=== PATIENT | female | born 1995 | race Caucasian/White ===

== ENCOUNTER 2016-11-28 15:03 | Emergency (ER) | payer MEDICAID ==
[~2016-11-28 15:03] MED LIST: EPIPEN JR0.15 MG/01 IM; IBUPROFEN600 MG PO; PERCOCET 5-3251 TAB PO; PHENERGAN25 M1 PO; PHENERGAN25 MG RC; PRENATAL COMPLE1 TAB PO; PRENAVITE1 TAB PO; VENTOLIN HFA18 GM POINH; ZOFRAN4 MG PO; [UNRECOGNIZED DRUG - OTHER]
[2016-11-28 15:46] LABS: BASOPHILS 0.5 % (0.0-2.0); EOSINOPHILS 2.3 % (0-7); HEMATOCRIT 38.7 % (36.0-48.0); HEMOGLOBIN 12.6 g/dL (12-16); IMMATURE GRANULOCYTES 0.3 % (0-5); LYMPHOCYTES 23.6 % (15-50); MCH 28.6 pg (26.0-34.0); MCHC 32.6 g/dL (31.0-37.0); MCV 87.8 fL (80.0-100.0); MEAN PLATELET VOLUME 11.9 fL (7.4-10.4); MONOCYTES 5.7 % (2-11); NEUTROPHILS 67.6 % (40-80); PLATELET COUNT 199 10x3/uL (130-400); RBC 4.41 10x6/uL (4.00-5.40); RDW 13.6 % (11.5-14.5); WBC 7.9 10x3/uL (4.8-10.8)
[2016-11-28 16:14] LABS: HCG SERUM NEGATIVE (NEGATIVE)
== END 2016-11-28 18:20 | disposition home or self-care (01) ==
LOC: D.ER 15:03
PROVIDERS: Emergency Medicine
DX: N93.8 Other specified abnormal uterine and vaginal bleeding (principal); J45.909 Unspecified asthma, uncomplicated

== ENCOUNTER 2017-05-01 13:07 | Emergency (ER) | payer MEDICAID ==
[2017-05-01 14:12] LABS: BASOPHILS 0.3 % (0-2); EOSINOPHILS 1.4 % (0-7); HEMATOCRIT 36.3 % (36.0-48.0); HEMOGLOBIN 12.3 g/dL (12-16); IMMATURE GRANULOCYTES 0.4 % (0-5); LYMPHOCYTES 17.7 % (15-50); MCH 30.5 pg (26.0-34.0); MCHC 33.9 g/dL (31.0-37.0); MCV 90.1 fL (80.0-100.0); MEAN PLATELET VOLUME 11.5 fL (7.4-10.4); MONOCYTES 5.3 % (2-11); NEUTROPHILS 74.9 % (40-80); PLATELET COUNT 164 10x3/uL (130-400); RBC 4.03 10x6/uL (4.00-5.40); RDW 13.9 % (11.5-14.5)
[2017-05-01 14:24] LABS: ALBUMIN 2.8 g/dL (3.4-5.0); ALKALINE PHOSPHATASE 67 U/L (46-116); ALT (SGPT) 46 U/L (10-68); BILIRUBIN - TOTAL 0.41 mg/dL (0.2-1.3); CALC OSMOLALITY 271 mosm/kg (275-300); CALCIUM 8.7 mg/dL (8.5-10.1); CARBON DIOXIDE 21.3 mmol/L (21.0-32.0); CHLORIDE - SERUM 105 mmol/L (98-107); CREATININE - SERUM 0.7 mg/dL (0.6-1.3); GLUCOSE 88 mg/dL (74-106); POTASSIUM - SERUM 4.1 mmol/L (3.5-5.1); PROTEIN - SERUM 6.4 g/dL (6.4-8.2); SODIUM 137 mmol/L (136-145); UREA NITROGEN 10 mg/dL (7-18); eGFR NON AFRICAN AMERICAN > 90 mL/min (90-120)
[2017-05-01 14:47] LABS: HCG - QUANTITATIVE (MATERNAL) 52308 mIU/mL
[2017-05-01 14:52] LABS: APPEARANCE HAZY (CLEAR); BILIRUBIN NEGATIVE (NEGATIVE); COLOR DK YELLOW (YELLOW); GLUCOSE NEGATIVE (NEGATIVE); KETONE NEGATIVE (NEGATIVE); LEUKOCYTE ESTERASE 2+ (NEGATIVE); NITRITE NEGATIVE (NEGATIVE); PROTEIN NEGATIVE (NEGATIVE); UROBILINOGEN NORMAL (NORMAL)
[2017-05-01 14:54] LABS: BACTERIA MODERATE /hpf (NONE SEEN)
== END 2017-05-01 17:00 | disposition home or self-care (01) ==
LOC: D.ER 13:07
PROVIDERS: Family Medicine
DX: O20.9 Hemorrhage in early pregnancy, unspecified (principal); Z3A.15 15 weeks gestation of pregnancy; O23.42 Unspecified infection of urinary tract in pregnancy, second trimester; R10.9 Unspecified abdominal pain; R11.0 Nausea; R51 Headache

== ENCOUNTER → 2017-06-17 11:40 | Outpatient (CLI) | payer MEDICAID | END | disposition home or self-care (01) | LOC: D.LDO 11:40 | DX: O26.892 Other specified pregnancy related conditions, second trimester (principal); Z3A.21 21 weeks gestation of pregnancy; R10.2 Pelvic and perineal pain; O36.8190 Decreased fetal movements, unspecified trimester, not applicable or unspecified; N89.8 Other specified noninflammatory disorders of vagina ==

== ENCOUNTER → 2017-08-11 11:05 | Outpatient (CLI) | payer MEDICAID ==
[~2017-08-11 11:05] MED LIST changes: +IBUPROFEN800 MG PO
[2017-08-11 13:39] LABS: APPEARANCE HAZY (CLEAR); BILIRUBIN NEGATIVE (NEGATIVE); COLOR DK YELLOW (YELLOW); GLUCOSE NEGATIVE (NEGATIVE); KETONE NEGATIVE (NEGATIVE); NITRITE NEGATIVE (NEGATIVE); PROTEIN NEGATIVE (NEGATIVE); SPECIFIC GRAVITY 1.015 (1.005-1.020); UROBILINOGEN NORMAL (NORMAL)
[2017-08-11 13:40] LABS: BACTERIA MANY /hpf (NONE SEEN); MUCUS <1+ /lpf (NONE SEEN); RED CELLS - URINE RARE /hpf (0-5); WHITE CELLS - URINE 0-5 /hpf (0-5)
== END | disposition home or self-care (01) ==
LOC: D.LDO 11:05
PROVIDERS: Obstetrics & Gynecology
DX: O36.8130 Decreased fetal movements, third trimester, not applicable or unspecified (principal); Z3A.29 29 weeks gestation of pregnancy

== ENCOUNTER 2017-08-12 15:30 | Outpatient (CLI) | payer MEDICAID ==
[~2017-08-12 15:30] MED LIST changes: -IBUPROFEN800 MG PO
[2017-08-12 16:02] LABS: COLOR DK YELLOW (YELLOW)
[2017-08-12 16:03] LABS: APPEARANCE CLEAR (CLEAR); BILIRUBIN NEGATIVE (NEGATIVE); GLUCOSE NEGATIVE (NEGATIVE); KETONE LARGE mg/dL (NEGATIVE); NITRITE NEGATIVE (NEGATIVE); PROTEIN NEGATIVE (NEGATIVE); UROBILINOGEN NORMAL (NORMAL)
[2017-08-12 16:07] LABS: UDS - AMPHET NEGATIVE QUAL (NEGATIVE); UDS - BARB NEGATIVE QUAL (NEGATIVE); UDS - BENZO NEGATIVE QUAL (NEGATIVE); UDS - COCAINE NEGATIVE QUAL (NEGATIVE); UDS - OPIATE NEGATIVE QUAL (NEGATIVE); UDS - PCP NEGATIVE QUAL (NEGATIVE); UDS - THC NEGATIVE QUAL (NEGATIVE); WHITE CELLS - URINE RARE /hpf (0-5)
[2017-08-12 16:08] LABS: BACTERIA FEW /hpf (NONE SEEN); EPITHELIAL CELLS OCC /hpf (0-5); RED CELLS - URINE 0-5 /hpf (0-5)
[2017-08-12 16:33] LABS: BASOPHILS 0.1 % (0-2); EOSINOPHILS 0.5 % (0-7); HEMATOCRIT 33.6 % (36.0-48.0); HEMOGLOBIN 11.1 g/dL (12-16); IMMATURE GRANULOCYTES 1.7 % (0-5); LYMPHOCYTES 14.2 % (15-50); MCH 30.7 pg (26.0-34.0); MCV 92.8 fL (80.0-100.0); MEAN PLATELET VOLUME 11.5 fL (7.4-10.4); NEUTROPHILS 79.5 % (40-80); RBC 3.62 10x6/uL (4.00-5.40); WBC 8.1 10x3/uL (4.8-10.8)
[2017-08-12 16:34] LABS: PLATELET COUNT 125 10x3/uL (130-400)
[2017-08-12 16:52] LABS: ALBUMIN 2.4 g/dL (3.4-5.0); ALKALINE PHOSPHATASE 72 U/L (46-116); ALT (SGPT) 32 U/L (10-68); AMYLASE - SERUM 88 U/L (25-115); BILIRUBIN - TOTAL 0.32 mg/dL (0.2-1.3); CALC OSMOLALITY 276 mosm/kg (275-300); CALCIUM 8.5 mg/dL (8.5-10.1); CARBON DIOXIDE 22.4 mmol/L (21.0-32.0); CHLORIDE - SERUM 105 mmol/L (98-107); CREATININE - SERUM 0.6 mg/dL (0.6-1.3); GLUCOSE 115 mg/dL (74-106); LIPASE 227 U/L (73-393); POTASSIUM - SERUM 3.4 mmol/L (3.5-5.1); PROTEIN - SERUM 6.3 g/dL (6.4-8.2); SODIUM 139 mmol/L (136-145); UREA NITROGEN 8 mg/dL (7-18); eGFR NON AFRICAN AMERICAN > 90 mL/min (90-120)
[2017-08-12] MEDS ORDERED: PRENATAL COMPLE1 TAB PO (18:27)
[2017-08-12 20:20] LABS: APPEARANCE CLEAR (CLEAR); BILIRUBIN NEGATIVE (NEGATIVE); COLOR YELLOW (YELLOW); GLUCOSE NEGATIVE (NEGATIVE); KETONE NEGATIVE (NEGATIVE); NITRITE NEGATIVE (NEGATIVE); PROTEIN NEGATIVE (NEGATIVE); SPECIFIC GRAVITY 1.015 (1.005-1.020); UROBILINOGEN NORMAL (NORMAL)
[2017-08-12 20:23] LABS: WHITE CELLS - URINE 0-5 /hpf (0-5)
[2017-08-12 20:24] LABS: BACTERIA FEW /hpf (NONE SEEN)
[2017-08-12 20:25] LABS: RED CELLS - URINE OCC /hpf (0-5)
== END 2017-08-12 20:45 | disposition home or self-care (01) ==
LOC: D.LDO 15:30
PROVIDERS: Obstetrics & Gynecology
DX: O26.893 Other specified pregnancy related conditions, third trimester (principal); Z3A.29 29 weeks gestation of pregnancy; R10.30 Lower abdominal pain, unspecified; R19.7 Diarrhea, unspecified

== ENCOUNTER → 2017-08-14 12:45 | Outpatient (CLI) | payer MEDICAID ==
[~2017-08-14 12:45] MED LIST changes: +IBUPROFEN800 MG PO
[2017-08-14 13:51] LABS: APPEARANCE CLOUDY (CLEAR); BACTERIA MODERATE /hpf (NONE SEEN); BILIRUBIN NEGATIVE (NEGATIVE); COLOR YELLOW (YELLOW); GLUCOSE NEGATIVE (NEGATIVE); KETONE NEGATIVE (NEGATIVE); MUCUS <1+ /lpf (NONE SEEN); NITRITE NEGATIVE (NEGATIVE); PROTEIN NEGATIVE (NEGATIVE); RED CELLS - URINE RARE /hpf (0-5); WHITE CELLS - URINE OCC /hpf (0-5)
[2017-08-14 13:52] LABS: CALCIUM OXALATE CRYSTALS >50 /hpf (NONE SEEN)
== END | disposition home or self-care (01) ==
LOC: D.LDO 12:45
PROVIDERS: Obstetrics & Gynecology
DX: O26.893 Other specified pregnancy related conditions, third trimester (principal); Z3A.30 30 weeks gestation of pregnancy; M54.9 Dorsalgia, unspecified; R10.9 Unspecified abdominal pain; R11.0 Nausea

== ENCOUNTER → 2017-09-11 10:50 | Outpatient (CLI) | payer MEDICAID ==
[2017-09-11 12:18] LABS: APPEARANCE HAZY (CLEAR); BILIRUBIN NEGATIVE (NEGATIVE); COLOR DK YELLOW (YELLOW); GLUCOSE NEGATIVE (NEGATIVE); KETONE NEGATIVE (NEGATIVE); NITRITE NEGATIVE (NEGATIVE); PROTEIN NEGATIVE (NEGATIVE); UROBILINOGEN NORMAL (NORMAL)
[2017-09-11 12:22] LABS: BACTERIA MODERATE /hpf (NONE SEEN); RED CELLS - URINE OCC /hpf (0-5); WHITE CELLS - URINE 0-5 /hpf (0-5); YEAST OCC /hpf (NONE SEEN)
[2017-09-11 12:23] LABS: CALCIUM OXALATE CRYSTALS 25-50 /hpf (NONE SEEN); MUCUS >1+ /lpf (NONE SEEN)
== END | disposition home or self-care (01) ==
LOC: D.LDO 10:50
PROVIDERS: Obstetrics & Gynecology
DX: O26.893 Other specified pregnancy related conditions, third trimester (principal); Z3A.34 34 weeks gestation of pregnancy; M54.9 Dorsalgia, unspecified; R30.0 Dysuria

== ENCOUNTER → 2017-09-26 16:02 | Outpatient (CLI) | payer MEDICAID ==
[2017-09-26 16:52] LABS: APPEARANCE HAZY (CLEAR); BILIRUBIN NEGATIVE (NEGATIVE); COLOR DK YELLOW (YELLOW); GLUCOSE NEGATIVE (NEGATIVE); KETONE NEGATIVE (NEGATIVE); NITRITE NEGATIVE (NEGATIVE); PROTEIN NEGATIVE (NEGATIVE); SPECIFIC GRAVITY 1.025 (1.005-1.020); UROBILINOGEN NORMAL (NORMAL)
== END | disposition home or self-care (01) ==
LOC: D.LDO 16:02
PROVIDERS: Obstetrics & Gynecology
DX: Z34.83 Encounter for supervision of other normal pregnancy, third trimester (principal); Z3A.36 36 weeks gestation of pregnancy

== ENCOUNTER → 2017-09-28 15:47 | Outpatient (CLI) | payer MEDICAID | END | disposition home or self-care (01) | LOC: D.LDO 15:47 | DX: O26.893 Other specified pregnancy related conditions, third trimester (principal); Z3A.36 36 weeks gestation of pregnancy ==

== ENCOUNTER 2017-10-07 19:19 | Outpatient (CLI) | payer MEDICAID ==
[~2017-10-07 19:19] MED LIST changes: -IBUPROFEN800 MG PO
[2017-10-07 20:07] LABS: BASOPHILS 0.1 % (0-2); EOSINOPHILS 0.9 % (0-7); HEMATOCRIT 32.1 % (36.0-48.0); HEMOGLOBIN 10.4 g/dL (12-16); LYMPHOCYTES 19.6 % (15-50); MCHC 32.4 g/dL (31.0-37.0); MCV 86.3 fL (80.0-100.0); MEAN PLATELET VOLUME 12.5 fL (7.4-10.4); MONOCYTES 4.8 % (2-11); NEUTROPHILS 72.6 % (40-80); PLATELET COUNT 132 10x3/uL (130-400); RBC 3.72 10x6/uL (4.00-5.40); RDW 14.1 % (11.5-14.5); WBC 7.5 10x3/uL (4.8-10.8)
[2017-10-07 20:27] LABS: APPEARANCE HAZY (CLEAR); BACTERIA MODERATE /hpf (NONE SEEN); BILIRUBIN NEGATIVE (NEGATIVE); COLOR YELLOW (YELLOW); GLUCOSE NEGATIVE (NEGATIVE); KETONE NEGATIVE (NEGATIVE); NITRITE NEGATIVE (NEGATIVE); PROTEIN NEGATIVE (NEGATIVE); RED CELLS - URINE 0-5 /hpf (0-5); SPECIFIC GRAVITY 1.015 (1.005-1.020); UROBILINOGEN NORMAL (NORMAL)
[2017-10-07 20:28] LABS: MUCUS >1+ /lpf (NONE SEEN); SPERMATOZOA RARE /hpf (NONE SEEN)
[2017-10-07 20:29] LABS: CALC OSMOLALITY 273 mosm/kg (275-300); CALCIUM 8.9 mg/dL (8.5-10.1); CARBON DIOXIDE 13.6 mmol/L (21.0-32.0); CHLORIDE - SERUM 103 mmol/L (98-107); CREATININE - SERUM 0.7 mg/dL (0.6-1.3); GLUCOSE 87 mg/dL (74-106); SODIUM 138 mmol/L (136-145); UREA NITROGEN 11 mg/dL (7-18); eGFR NON AFRICAN AMERICAN > 90 mL/min (90-120)
== END 2017-10-07 21:00 | disposition home or self-care (01) ==
LOC: D.LDO 19:19
PROVIDERS: Obstetrics & Gynecology
DX: O26.893 Other specified pregnancy related conditions, third trimester (principal); Z3A.37 37 weeks gestation of pregnancy; O36.8190 Decreased fetal movements, unspecified trimester, not applicable or unspecified

== ENCOUNTER 2017-10-15 20:42 | Inpatient (IN) | payer MEDICAID ==
[~2017-10-15] VITALS: Ht 162.6 cm; Wt 99.5 kg
--- NOTE | ~2017-10-15 | OP ---
PATIENT NAME: GERARDO JIMENEZ MEDICAL RECORD: [id number] :96 LOCATION:[facility]57 ADMISSION DATE:10/15/17 SURGEON: EVERT ALCALA MD DATE OF OPERATION: 10/16/2017 PREDELIVERY DIAGNOSIS: at term. POSTDELIVERY DIAGNOSIS: Mother delivered at term. PROCEDURE: Induction of labor with vaginal delivery. ATTENDING: Evert Alcala MD ANESTHESIOLOGIST: Cecilio Haynes MD ANESTHETICS: Continuous lumbar epidural loading dose only. FINDINGS: Viable female , vertex presentation, Apgars are 9 and 9, weight is 3465 grams. First-degree laceration without repair. Placenta spontaneous and intact. EBL is 350 cc. DISPOSITION: Mother and infant recovered in the room with subsequent mother to operating room for tubal ligation. TRANSINT:[id number] Voice Confirmation ID: [id number] DOCUMENT ID: [id number] EVERT ALCALA MD at 1647 CC: [id number] DICTATION DATE: 10/16/17 1315 GIN FEEDER: 10/16/17 1336 DIS IN 10/17/17 [facility] [address] [place] [address]
--- NOTE | ~2017-10-15 | OP ---
PATIENT NAME: GERARDO JIMENEZ MEDICAL RECORD: [id number] :96 LOCATION:[facility]1257 ADMISSION DATE:10/15/17 SURGEON: EVERT ALCALA MD DATE OF OPERATION: 10/16/2017 PREOPERATIVE DIAGNOSES: 1. Unwanted fertility. 2. Status post vaginal delivery. POSTOPERATIVE DIAGNOSES: 1. Unwanted fertility. 2. Status post vaginal delivery. PROCEDURE: tubal ligation using Sanborn technique. SURGEON: Evert Alcala MD ORTHOTICS TECHNICIAN: Hair Starr. ANESTHESIOLOGIST: Dr. Haynes. ANESTHETIC: Continuous lumbar epidural. FINDINGS: Unremarkable uterine fundus and tubes bilaterally. SPECIMEN: Removed tubes. SPECIMEN DISPOSITION: Both tubes in separate containers to pathology. ESTIMATED BLOOD LOSS: Minimal. FLUIDS: 900 cc of lactated Ringer's. URINE OUTPUT: Quantity sufficient void prior to the procedure. COMPLICATIONS: None. DRAINS: None. INDICATIONS: The patient is 22-year-old multiparous female with unwanted fertility. The patient has been given alternatives to tubal ligation and risk, benefits and limitations thereof. The patient desires permanent sterilization and understands risk of ectopic gestation. DESCRIPTION OF PROCEDURE: After informed consent was assured, the patient was taken to the operating room, anesthetic was obtained without difficulty. The patient was now prepped and draped in the usual sterile fashion. The patient has an incision made at the infraumbilical site. This was injected with Marcaine prior to the incision being made. Incision was taken down to the underlying layer of the fascia, which was opened in the midline and extended laterally. The peritoneum was entered sharply and using retractors the fundus was identified. The tube was identified at the left cornual region and followed to its fimbriated end. A knuckle was now developed and it was doubly ligated with chromic stitch. Intervening segment of tube was excised and the ostia cauterized. The tubal stump was returned to the abdomen with adequate OPERATIVE REPORT [id number] GERARDO JIMENEZ hemostasis. Attention was now directed to the right side. The right tube was located and followed to its fimbriated end in similar fashion. Knuckle was now developed and secured the knuckle of stitch. The intervening segment of tube was now excised with Metzenbaum scissors and the ostia cauterized. The tubal stump was returned to the abdomen. Fascia was closed in a running fashion. Subcutaneous tissues inspected. Bleeding vessels cauterized and the skin approximated with subcuticular stitch. Sterile dressing was applied. Again, the sponge, lap and needle counts correct times 2. TRANSINT:[id number] Voice Confirmation ID: [id number] DOCUMENT ID: [id number] EVERT ALCALA MD at 1647 CC: [id number] DICTATION DATE: 10/16/17 1318 VETERINARY PATHOLOGIST: 10/16/17 1354 DIS IN 10/17/17 [id number] [place] [address]
[2017-10-15 22:03] VITALS: BP 111/65; Ht 162.6 cm; Wt 99.5 kg
[2017-10-15 23:37] LABS: HEMATOCRIT 31.3 % (36.0-48.0); MCH 27.3 pg (26.0-34.0); MCHC 31.9 g/dL (31.0-37.0); MCV 85.5 fL (80.0-100.0); MEAN PLATELET VOLUME 12.3 fL (7.4-10.4); RBC 3.66 10x6/uL (4.00-5.40); RDW 14.4 % (11.5-14.5); WBC 8.2 10x3/uL (4.8-10.8)
[2017-10-15 23:43] LABS: APPEARANCE CLEAR (CLEAR); BACTERIA FEW /hpf (NONE SEEN); BILIRUBIN NEGATIVE (NEGATIVE); COLOR DK YELLOW (YELLOW); EPITHELIAL CELLS NSEEN /hpf (0-5); GLUCOSE NEGATIVE (NEGATIVE); KETONE NEGATIVE (NEGATIVE); NITRITE NEGATIVE (NEGATIVE); PROTEIN NEGATIVE (NEGATIVE); RED CELLS - URINE NONE SEEN /hpf (0-5); SPECIFIC GRAVITY 1.015 (1.005-1.020); UROBILINOGEN NORMAL (NORMAL)
[2017-10-16 11:39] VITALS: BP 94/62
[2017-10-16 12:21] VITALS: BP 96/65
[2017-10-16 20:08] VITALS: BP 103/56
[2017-10-16 23:00] VITALS: BP 102/67
[2017-10-17 07:27] LABS: RAPID PLASMA REAGIN Non Reactive (Non Reactive)
[2017-10-17 08:10] VITALS: BP 114/69
[2017-10-17] MEDS ORDERED: PERCOCET 5-3251 TAB PO (10:39)
[2017-10-17] MEDS ORDERED: IBUPROFEN800 MG PO (10:41)
== END 2017-10-17 12:30 | disposition home or self-care (01) | DRG 767 ==
LOC: D.LD 20:42
PROVIDERS: Obstetrics & Gynecology
PROC: 0UB70ZZ Excision of Bilateral Fallopian Tubes, Open Approach (ICD-10-PCS; 2017-10-16)
PROC: 10E0XZZ Delivery of Products of Conception, External Approach (ICD-10-PCS; principal; 2017-10-16 09:30)
DX: O70.0 First degree perineal laceration during delivery (principal); Z37.0 Single live birth; Z3A.39 39 weeks gestation of pregnancy; Z87.891 Personal history of nicotine dependence; Z30.2 Encounter for sterilization; Z30.09 Encounter for other general counseling and advice on contraception

== ENCOUNTER 2018-04-03 01:01 | Emergency (ER) | payer MEDICAID ==
[~2018-04-03] VITALS: Ht 162.6 cm; Wt 92.7 kg
[~2018-04-03 01:01] MED LIST changes: +IBUPROFEN800 MG PO
[2018-04-03 01:06] VITALS: Ht 162.6 cm; Wt 92.7 kg
[2018-04-03] MEDS ORDERED: EPIPEN0.3 MG/0.3 IM (01:09)
[2018-04-03 01:54] LABS: HCG SERUM NEGATIVE (NEGATIVE)
[2018-04-03] MEDS ORDERED: MEDROL DOSE PACK4 MG PO (02:06)
[2018-04-03 02:34] VITALS: BP 108/68
[2018-04-04] MEDS ORDERED: FLAGYL500 MG PO (02:23)
[2018-04-04] MEDS ORDERED: ZOFRAN ODT4 MG/UDTAB PO (02:23)
[2018-04-04] MEDS ORDERED: CIPRO500 MG PO (02:23)
== END 2018-04-03 02:33 | disposition home or self-care (01) ==
LOC: D.ER 01:01
PROVIDERS: Emergency Medicine
DX: T50.995A Adverse effect of other drugs, medicaments and biological substances, initial encounter (principal); Y92.019 Unspecified place in single-family (private) house as the place of occurrence of the external cause

== ENCOUNTER 2018-04-04 00:03 | Emergency (ER) | payer MEDICAID ==
[~2018-04-04] VITALS: Ht 162.6 cm; Wt 92.7 kg
[~2018-04-04 00:03] MED LIST changes: +EPIPEN0.3 MG/0.3 IM; +MEDROL DOSE PACK4 MG PO
[2018-04-04 00:11] VITALS: Ht 162.6 cm; Wt 92.7 kg
[2018-04-04 00:46] LABS: APPEARANCE CLOUDY (CLEAR); BILIRUBIN NEGATIVE (NEGATIVE); COLOR YELLOW (YELLOW); GLUCOSE NEGATIVE (NEGATIVE); KETONE NEGATIVE (NEGATIVE); NITRITE NEGATIVE (NEGATIVE); PROTEIN NEGATIVE (NEGATIVE); SPECIFIC GRAVITY 1.025 (1.005-1.020); UROBILINOGEN NORMAL (NORMAL)
[2018-04-04 00:49] LABS: BACTERIA MANY /hpf (NONE SEEN); CALCIUM OXALATE CRYSTALS 0-5 /hpf (NONE SEEN); RED CELLS - URINE 0-5 /hpf (0-5); WHITE CELLS - URINE 0-5 /hpf (0-5)
[2018-04-04 01:01] LABS: BASOPHILS 0.2 % (0-2); EOSINOPHILS 0.1 % (0-7); HEMATOCRIT 39.5 % (36.0-48.0); IMMATURE GRANULOCYTES 0.6 % (0-5); LYMPHOCYTES 15.3 % (15-50); MCH 27.6 pg (26.0-34.0); MCHC 32.9 g/dL (31.0-37.0); MCV 83.9 fL (80.0-100.0); MEAN PLATELET VOLUME 11.2 fL (7.4-10.4); MONOCYTES 5.9 % (2-11); NEUTROPHILS 77.9 % (40-80); RBC 4.71 10x6/uL (4.00-5.40); RDW 14.6 % (11.5-14.5); WBC 12.1 10x3/uL (4.8-10.8)
[2018-04-04 01:02] LABS: PLATELET COUNT 189 10x3/uL (130-400)
[2018-04-04 01:14] LABS: ALBUMIN 3.5 g/dL (3.4-5.0); ALKALINE PHOSPHATASE 71 U/L (46-116); ALT (SGPT) 85 U/L (10-68); AMYLASE - SERUM 85 U/L (25-115); BILIRUBIN - TOTAL 0.22 mg/dL (0.2-1.3); CALC OSMOLALITY 283 mosm/kg (275-300); CALCIUM 8.8 mg/dL (8.5-10.1); CARBON DIOXIDE 27.5 mmol/L (21.0-32.0); CHLORIDE - SERUM 106 mmol/L (98-107); CREATININE - SERUM 0.9 mg/dL (0.6-1.3); GLUCOSE 106 mg/dL (74-106); LIPASE 238 U/L (73-393); POTASSIUM - SERUM 3.8 mmol/L (3.5-5.1); PROTEIN - SERUM 7.6 g/dL (6.4-8.2); SODIUM 142 mmol/L (136-145); UREA NITROGEN 16 mg/dL (7-18); eGFR NON AFRICAN AMERICAN 84 mL/min (90-120)
[2018-04-04] MEDS ORDERED: FLAGYL500 MG PO (02:23)
[2018-04-04] MEDS ORDERED: CIPRO500 MG PO (02:23)
[2018-04-04] MEDS ORDERED: ZOFRAN ODT4 MG/UDTAB PO (02:23)
[2018-04-04 02:55] VITALS: BP 128/74
== END 2018-04-04 02:55 | disposition home or self-care (01) ==
LOC: D.ER 00:03
PROVIDERS: Emergency Medicine
DX: K52.9 Noninfective gastroenteritis and colitis, unspecified (principal); N39.0 Urinary tract infection, site not specified

== ENCOUNTER 2018-05-04 02:20 | Emergency (ER) | payer MEDICAID ==
[~2018-05-04] VITALS: Ht 162.6 cm; Wt 92.7 kg
[~2018-05-04 02:20] MED LIST changes: +CIPRO500 MG PO; +FLAGYL500 MG PO; +ZOFRAN ODT4 MG/UDTAB PO
[2018-05-04 02:28] VITALS: Ht 162.6 cm; Wt 92.7 kg
[2018-05-04] MEDS ORDERED: BIRTH CONTROL PILL (02:30)
[2018-05-04 02:55] LABS: APPEARANCE HAZY (CLEAR); BILIRUBIN NEGATIVE (NEGATIVE); COLOR YELLOW (YELLOW); GLUCOSE NEGATIVE (NEGATIVE); KETONE NEGATIVE (NEGATIVE); NITRITE NEGATIVE (NEGATIVE); PROTEIN NEGATIVE (NEGATIVE); UROBILINOGEN NORMAL (NORMAL)
[2018-05-04 02:57] LABS: BACTERIA FEW /hpf (NONE SEEN); EPITHELIAL CELLS 0-5 /hpf (0-5); MUCUS <1+ /lpf (NONE SEEN); RED CELLS - URINE 0-5 /hpf (0-5); WHITE CELLS - URINE 0-5 /hpf (0-5)
[2018-05-04 03:20] LABS: BASOPHILS 0.3 % (0-2); EOSINOPHILS 1.8 % (0-7); HEMOGLOBIN 12.4 g/dL (12-16); IMMATURE GRANULOCYTES 0.1 % (0-5); LYMPHOCYTES 25.1 % (15-50); MCH 27.7 pg (26.0-34.0); MCHC 32.6 g/dL (31.0-37.0); MCV 84.8 fL (80.0-100.0); MEAN PLATELET VOLUME 11.1 fL (7.4-10.4); MONOCYTES 5.4 % (2-11); NEUTROPHILS 67.3 % (40-80); RBC 4.48 10x6/uL (4.00-5.40); RDW 14.9 % (11.5-14.5); WBC 7.2 10x3/uL (4.8-10.8)
[2018-05-04 03:22] LABS: PLATELET COUNT 151 10x3/uL (130-400)
[2018-05-04 03:32] LABS: ALBUMIN 2.9 g/dL (3.4-5.0); ANION GAP 11.7 mmol/L (8-16); BILIRUBIN - TOTAL 0.23 mg/dL (0.2-1.3); CALCIUM 8.5 mg/dL (8.5-10.1); CARBON DIOXIDE 27.3 mmol/L (21.0-32.0)
[2018-05-04 03:44] LABS: HCG SERUM NEGATIVE (NEGATIVE)
[2018-05-04 04:18] VITALS: BP 127/76
== END 2018-05-04 04:18 | disposition home or self-care (01) ==
LOC: D.ER 02:20
PROVIDERS: Emergency Medicine
DX: K59.00 Constipation, unspecified (principal); M54.6 Pain in thoracic spine

== ENCOUNTER 2018-08-06 05:35 | Day surgery (SDC) | payer MEDICAID ==
[2018-08-03 12:03] LABS: BASOPHILS 0.5 % (0-2); HEMATOCRIT 37.2 % (36.0-48.0); HEMOGLOBIN 12.1 g/dL (12-16); IMMATURE GRANULOCYTES 0.3 % (0-5); LYMPHOCYTES 28.3 % (15-50); MCH 28.3 pg (26.0-34.0); MCHC 32.5 g/dL (31.0-37.0); MCV 86.9 fL (80.0-100.0); MEAN PLATELET VOLUME 10.4 fL (7.4-10.4); MONOCYTES 4.7 % (2-11); NEUTROPHILS 63.2 % (40-80); RBC 4.28 10x6/uL (4.00-5.40); RDW 14.1 % (11.5-14.5); WBC 6.7 10x3/uL (4.8-10.8)
[2018-08-03 12:05] LABS: PLATELET COUNT 185 10x3/uL (130-400)
[~2018-08-06] VITALS: Ht 162.6 cm; Wt 95.7 kg
--- NOTE | ~2018-08-06 | OP ---
PATIENT NAME: GERARDO JIMENEZ MEDICAL RECORD: [id number] :96 LOCATION:D.[facility] ADMISSION DATE: SURGEON: YANIV ALCALA MD DATE OF OPERATION: 08/06/2018 PREOPERATIVE DIAGNOSES: 1. Dysmenorrhea. 2. Pelvic pain. 3. Dyspareunia. POSTOPERATIVE DIAGNOSES: 1. Dysmenorrhea. 2. Pelvic pain. 3. Dyspareunia. 4. Suspect adenomyosis. PROCEDURE: 1. Diagnostic laparoscopy. 2. Hysteroscopy with dilation and curettage. SURGEON: Yaniv Alcala MD ANESTHESIOLOGIST: Dr. Haynes. ANESTHETIC: General. FINDINGS: Uterus is enlarged and boggy. Both tubes were interrupted bilaterally. The ovaries are unremarkable and there is no evidence of active endometriosis in the pelvis. What was visualized of the abdominal anatomy was also unremarkable. At the time of hysteroscopy, a lush endometrium without evidence of polypoid mass or fibroid. SPECIMEN REMOVED: Endometrial curettings. SPECIMEN DISPOSITION: Pathology. ESTIMATED BLOOD LOSS: Minimal FLUIDS: 800 cc lactated Ringer's. URINE OUTPUT: Quantity sufficient cath prior to the procedure. COMPLICATIONS: None. DRAINS: None. INDICATIONS: The patient is a 23-year-old female status post tubal ligation with dysmenorrhea and pelvic pain. The patient has been on oral contraception for 4-6 months without change in her symptoms. The patient was consented for diagnostic laparoscopy, D&C with hysteroscopy and any indicated procedure. DESCRIPTION OF PROCEDURE: After informed consent was assured, the patient was taken to the operating room where anesthetic was obtained. The patient was placed in Param stirrups and then prepped and draped in the usual sterile fashion. An incision was made at the umbilicus to accommodate a 5-mm trocar, OPERATIVE REPORT [id number] GERARDO JIMENEZ which was inserted without difficulty. Pneumoperitoneum was now developed and accessory port was placed 2 fingerbreadths above the symphysis in the midline. Through this port, a blunt probe was placed and with the patient in the Trendelenburg position, the bowel was swept free of the pelvis. Both ovaries, tubes and the uterus was inspected with the above findings. Upon conclusion of the diagnostic laparoscopy, the pneumoperitoneum was released and the accessory and primary trocars were removed. The skin was reapproximated with a subcuticular stitch. The legs were positioned for the hysteroscopy. A speculum was introduced to the vagina and the cervix grasped with a single tooth tenaculum. The cervix was now dilated to accommodate a diagnostic hysteroscope. This was passed gently through the endocervical canal and into the uterine cavity. With the distention media, the cavity was visualized with no evidence of polypoid masses or fibroids. Lush endometrium was encountered. The cervix was now continued to be dilated until a #2 curette is used to obtain good cry throughout. Moderate tissue was removed and passed to the attendant. Upon the removal of the single-tooth tenaculum, laceration has occurred and this was closed with a chromic stitch. Sponge, lap, and needle counts correct times 2. The patient was awakened and went to the recovery area in stable condition. TRANSINT:[id number] Voice Confirmation ID: [id number] DOCUMENT ID: [id number] YANIV ALCALA MD at 1705 CC: [id number] DICTATION DATE: 08/06/18826 ABRASIVE COATING MACHINE OPERATOR: 08/06/18 0838 [facility] 08/06/18 [id number] [place] [address]
[~2018-08-06 05:35] MED LIST changes: +BIRTH CONTROL PILL
[2018-08-06] MEDS ORDERED: ALBUTEROL SULF8.5 GM (06:16)
[2018-08-06 06:23] VITALS: BP 106/67; Ht 162.6 cm; Wt 95.7 kg
[2018-08-06 06:48] LABS: HCG URINE NEGATIVE (NEGATIVE)
== END 2018-08-06 10:22 | disposition home or self-care (01) ==
LOC: D.OPS 05:35 → D.PAN 07:30 → D.OPS 07:30
PROVIDERS: Obstetrics & Gynecology
DX: N85.2 Hypertrophy of uterus (principal); N94.6 Dysmenorrhea, unspecified; N94.10 Unspecified dyspareunia; Z79.3 Long term (current) use of hormonal contraceptives; Z01.812 Encounter for preprocedural laboratory examination

== ENCOUNTER 2018-08-30 06:46 | Emergency (ER) | payer MEDICAID ==
[~2018-08-30] VITALS: Ht 162.6 cm; Wt 91.8 kg
[~2018-08-30 06:46] MED LIST changes: +ALBUTEROL SULF8.5 GM
[2018-08-30 06:48] VITALS: Ht 162.6 cm; Wt 91.8 kg
[2018-08-30] MEDS ORDERED: TRANXENE3.75 MG PO (06:51)
[2018-08-30] MEDS ORDERED: [UNRECOGNIZED DRUG - OTHER] (06:52)
[2018-08-30 07:29] LABS: BASOPHILS 0.2 % (0-2); EOSINOPHILS 1.2 % (0-7); HEMATOCRIT 36.9 % (36.0-48.0); HEMOGLOBIN 12.2 g/dL (12-16); IMMATURE GRANULOCYTES 0.3 % (0-5); LYMPHOCYTES 10.1 % (15-50); MCH 28.2 pg (26.0-34.0); MCHC 33.1 g/dL (31.0-37.0); MCV 85.2 fL (80.0-100.0); MEAN PLATELET VOLUME 11.4 fL (7.4-10.4); MONOCYTES 7.5 % (2-11); NEUTROPHILS 80.7 % (40-80); RBC 4.33 10x6/uL (4.00-5.40); RDW 13.9 % (11.5-14.5); WBC 6.4 10x3/uL (4.8-10.8)
[2018-08-30 07:31] LABS: PLATELET COUNT 144 10x3/uL (130-400)
[2018-08-30 07:39] LABS: HCG SERUM NEGATIVE (NEGATIVE)
[2018-08-30 07:46] LABS: APPEARANCE CLEAR (CLEAR); BACTERIA FEW /hpf (NONE SEEN); BILIRUBIN NEGATIVE (NEGATIVE); COLOR YELLOW (YELLOW); EPITHELIAL CELLS 0-5 /hpf (0-5); GLUCOSE NEGATIVE (NEGATIVE); KETONE NEGATIVE (NEGATIVE); NITRITE NEGATIVE (NEGATIVE); PROTEIN NEGATIVE (NEGATIVE); RED CELLS - URINE 0-5 /hpf (0-5); UROBILINOGEN NORMAL (NORMAL); WHITE CELLS - URINE OCC /hpf (0-5)
[2018-08-30 07:47] LABS: ALBUMIN 3.1 g/dL (3.4-5.0); ALKALINE PHOSPHATASE 69 U/L (46-116); ALT (SGPT) 181 U/L (10-68); BILIRUBIN - TOTAL 0.43 mg/dL (0.2-1.3); CALCIUM 8.7 mg/dL (8.5-10.1); CARBON DIOXIDE 24.6 mmol/L (21.0-32.0); CREATININE - SERUM 0.8 mg/dL (0.6-1.3); GLUCOSE 106 mg/dL (74-106); PROTEIN - SERUM 7.4 g/dL (6.4-8.2); UREA NITROGEN 13 mg/dL (7-18); eGFR NON AFRICAN AMERICAN > 90 mL/min (90-120)
[2018-08-30 07:48] LABS: CALC OSMOLALITY 271 mosm/kg (275-300); CHLORIDE - SERUM 102 mmol/L (98-107); POTASSIUM - SERUM 3.6 mmol/L (3.5-5.1); SODIUM 136 mmol/L (136-145)
[2018-08-30 12:51] LABS: HEMATOCRIT 33.2 % (36.0-48.0); HEMOGLOBIN 10.9 g/dL (12-16)
[2018-08-30 15:23] VITALS: BP 109/66
== END 2018-08-30 15:23 | disposition home or self-care (01) ==
LOC: D.ER 06:46
PROVIDERS: Emergency Medicine
DX: N93.9 Abnormal uterine and vaginal bleeding, unspecified (principal)

== ENCOUNTER 2019-02-08 22:08 | Emergency (ER) | payer MEDICAID ==
[~2019-02-08] VITALS: Ht 162.6 cm; Wt 100.0 kg
[~2019-02-08 22:08] MED LIST changes: +TRANXENE3.75 MG PO; +[UNRECOGNIZED DRUG - OTHER]
[2019-02-08 22:25] VITALS: Ht 162.6 cm; Wt 100.0 kg
[2019-02-08 23:08] LABS: APPEARANCE HAZY (CLEAR); BACTERIA FEW /hpf (NONE SEEN); BILIRUBIN NEGATIVE (NEGATIVE); COLOR YELLOW (YELLOW); GLUCOSE NEGATIVE (NEGATIVE); KETONE SMALL mg/dL (NEGATIVE); NITRITE NEGATIVE (NEGATIVE); PROTEIN TRACE mg/dL (NEGATIVE); UROBILINOGEN NORMAL (NORMAL); WHITE CELLS - URINE 0-5 /hpf (0-5)
[2019-02-08 23:10] LABS: ALBUMIN 3.5 g/dL (3.4-5.0); ALKALINE PHOSPHATASE 64 U/L (46-116); ALT (SGPT) 56 U/L (10-68); BILIRUBIN - TOTAL 0.64 mg/dL (0.2-1.3); CALC OSMOLALITY 279 mosm/kg (275-300); CARBON DIOXIDE 23.8 mmol/L (21.0-32.0); CHLORIDE - SERUM 106 mmol/L (98-107); CREATININE - SERUM 0.9 mg/dL (0.6-1.3); GLUCOSE 103 mg/dL (74-106); POTASSIUM - SERUM 4.3 mmol/L (3.5-5.1); PROTEIN - SERUM 7.9 g/dL (6.4-8.2); SODIUM 140 mmol/L (136-145); UREA NITROGEN 14 mg/dL (7-18); eGFR NON AFRICAN AMERICAN 83 mL/min (90-120)
[2019-02-08 23:22] LABS: HEMATOCRIT 41.8 % (36.0-48.0); HEMOGLOBIN 13.6 g/dL (12-16); MCH 27.9 pg (26.0-34.0); MCHC 32.5 g/dL (31.0-37.0); MCV 85.7 fL (80.0-100.0); MEAN PLATELET VOLUME 11.5 fL (7.4-10.4); RBC 4.88 10x6/uL (4.00-5.40); RDW 14.1 % (11.5-14.5); WBC 9.6 10x3/uL (4.8-10.8)
[2019-02-08 23:28] LABS: PLATELET COUNT 194 10x3/uL (130-400)
[2019-02-09 00:03] LABS: EOSINOPHILS 1 % (0-7); LYMPHOCYTES 8 % (15-50); MONOCYTES 3 % (2-11); NEUTROPHILS 88 % (40-80); PLATELET ESTIMATE NORMAL
[2019-02-09 00:12] LABS: HCG URINE NEGATIVE (NEGATIVE)
[2019-02-09] MEDS ORDERED: PHENERGAN25 M1 PO (01:12)
[2019-02-09] MEDS ORDERED: FLAGYL500 MG PO (01:12)
[2019-02-09 01:53] VITALS: BP 112/72
== END 2019-02-09 01:54 | disposition home or self-care (01) ==
LOC: D.ER 22:08
PROVIDERS: Emergency Medicine
DX: A08.4 Viral intestinal infection, unspecified (principal); N76.0 Acute vaginitis; B96.89 Other specified bacterial agents as the cause of diseases classified elsewhere; R10.9 Unspecified abdominal pain

== ENCOUNTER → 2019-02-15 15:27 | Outpatient (CLI) | payer MEDICAID ==
[2019-02-08 22:25] VITALS: BMI 37.8
== END | disposition home or self-care (01) ==
LOC: D.LABREF 15:27
PROVIDERS: ATTEND Urology
DX: D72.829 Elevated white blood cell count, unspecified (principal); R82.5 Elevated urine levels of drugs, medicaments and biological substances

== ENCOUNTER 2019-03-26 07:00 | Day surgery (SDC) | payer MEDICAID ==
[2019-03-25 10:08] LABS: HEMATOCRIT 40.5 % (36.0-48.0); HEMOGLOBIN 13.4 g/dL (12-16); MCH 28.4 pg (26.0-34.0); MCHC 33.1 g/dL (31.0-37.0); MCV 85.8 fL (80.0-100.0); RBC 4.72 10x6/uL (4.00-5.40); RDW 14.7 % (11.5-14.5); WBC 5.4 10x3/uL (4.8-10.8)
[2019-03-25 10:25] LABS: ALBUMIN 3.2 g/dL (3.4-5.0); ALKALINE PHOSPHATASE 75 U/L (46-116); ALT (SGPT) 176 U/L (10-68); AMYLASE - SERUM 90 U/L (25-115); BILIRUBIN - TOTAL 0.32 mg/dL (0.2-1.3); CALC OSMOLALITY 278 mosm/kg (275-300); CALCIUM 8.8 mg/dL (8.5-10.1); CARBON DIOXIDE 25.6 mmol/L (21.0-32.0); CHLORIDE - SERUM 106 mmol/L (98-107); CREATININE - SERUM 0.9 mg/dL (0.6-1.3); GLUCOSE 97 mg/dL (74-106); POTASSIUM - SERUM 4.2 mmol/L (3.5-5.1); PROTEIN - SERUM 7.3 g/dL (6.4-8.2); SODIUM 139 mmol/L (136-145); UREA NITROGEN 15 mg/dL (7-18); eGFR NON AFRICAN AMERICAN 83 mL/min (90-120)
[2019-03-25 10:39] LABS: HCG SERUM NEGATIVE (NEGATIVE)
[~2019-03-26] VITALS: Ht 165.1 cm; Wt 102.1 kg
[~2019-03-26 07:00] MED LIST changes: +OXYBUTYNIN CHLOR5 M1 PO; +SPRINTEC 28 DA1 EAC1 PO
[2019-03-26] MEDS ORDERED: ALBUTEROL SULF8.5 GM INH ×2 (07:33→07:34)
[2019-03-26 07:34] VITALS: BP 98/53; Ht 165.1 cm; Wt 102.1 kg
--- NOTE | 2019-03-26 10:36 | OP ---
PATIENT NAME: GERARDO BECK MEDICAL RECORD: [id number] :96 LOCATION:D.OPS ADMISSION DATE: SURGEON: NATHANIEL BLANCO MD DATE OF OPERATION: 03/26/2019 SURGEON: Nathaniel Blanco MD HELP DESK SPECIALIST: CHACHO Chatman CRNA DIAGNOSIS: Interstitial cystitis. PROCEDURES: Cystoscopy, hydrodistention and intravesical Rimso instillation. FINDINGS: Diffuse bladder inflammation with no bladder tumors. BLOOD LOSS: None. CLINICAL HISTORY: This is a 23-year-old female whom I saw initially for urinary urgency and fecal incontinence. She was started on oxybutynin and this has managed to treat both adequately. She has urinary frequency with urge incontinence and dysuria. Her urinalysis is normal. She did have one episode of an E. coli UTI, but this has been treated. Her symptoms persist. She comes today to have cystoscopy, hydrodistention and intravesical Rimso instillation for possible interstitial cystitis. She has numerous allergies, but she is not allergic to Ancef. She was given Ancef retail sales associate seasonal to the OR. DESCRIPTION OF PROCEDURE: The patient was given IV sedation. She was placed in lithotomy position and prepped and draped. A 21-Malagasy cystoscope with 30-degree lens was used for visualization. Bladder inflammation was noted with no bladder tumors seen. There are single ureteral orifices on each side. The bladder was hydrodistended with 500 mL of normal saline. This was held in for 1-2 minutes. The bladder was then emptied. Through a red rubber catheter, 14-Malagasy in size, we instilled 50 mL of Rimso solution into the bladder. The catheter was removed and the solution was left in the bladder. She will void it out after 15 minutes. We will see her in followup in 2 weeks' time to check on her response. TRANSINT:[id number] Voice Confirmation ID: [id number] DOCUMENT ID: [id number] NATHANIEL BLANCO MD at 1036 CC: [id number] DICTATION DATE: 03/26/19 0951 ALIGNMENT MECHANIC: 03/26/19 1021 [facility] [address] [place] [address]
== END 2019-03-26 10:40 | disposition home or self-care (01) ==
LOC: D.OPS 07:00 → D.PAN 09:00 → D.OPS 09:45 → D.PAN 09:45 → D.OPS 10:40
PROVIDERS: Anesthesiology; ATTEND Urology
DX: N30.10 Interstitial cystitis (chronic) without hematuria (principal); Z01.812 Encounter for preprocedural laboratory examination

== ENCOUNTER → 2019-04-16 12:33 | Outpatient (CLI) | payer MEDICAID ==
[2019-03-26 07:34] VITALS: BMI 37.5
[~2019-04-16 12:33] MED LIST changes: +ALBUTEROL SULF8.5 GM INH
== END | disposition home or self-care (01) ==
LOC: D.LABREF 12:33
PROVIDERS: ATTEND Urology
DX: D72.829 Elevated white blood cell count, unspecified (principal)

== ENCOUNTER 2019-07-01 10:00 | Day surgery (SDC) | payer MEDICAID ==
[2019-06-28 10:31] LABS: BASOPHILS 0.8 % (0-2); EOSINOPHILS 5.2 % (0-7); HEMATOCRIT 41.3 % (36.0-48.0); HEMOGLOBIN 13.5 g/dL (12-16); IMMATURE GRANULOCYTES 0.4 % (0-5); LYMPHOCYTES 29.9 % (15-50); MCHC 32.7 g/dL (31.0-37.0); MCV 88.8 fL (80.0-100.0); MEAN PLATELET VOLUME 11.2 fL (7.4-10.4); NEUTROPHILS 58.7 % (40-80); PLATELET COUNT 210 10x3/uL (130-400); RBC 4.65 10x6/uL (4.00-5.40); RDW 13.5 % (11.5-14.5); WBC 5.2 10x3/uL (4.8-10.8)
[~2019-07-01] VITALS: Ht 165.1 cm; Wt 102.1 kg
[2019-07-01 11:17] VITALS: Ht 165.1 cm; Wt 102.1 kg
[2019-07-01 11:26] LABS: HCG URINE NEGATIVE (NEGATIVE)
--- NOTE | 2019-07-02 07:42 | OP ---
PATIENT NAME: GERARDO BECK MEDICAL RECORD: [id number] :96 LOCATION:D.OPS ADMISSION DATE: SURGEON: YANIV ALCALA MD DATE OF OPERATION: 07/01/2019 PREOPERATIVE DIAGNOSIS: Dysfunctional uterine bleeding. POSTOPERATIVE DIAGNOSIS: Dysfunctional uterine bleeding. PROCEDURES: 1. Hysteroscopy. 2. Dilation and curettage. 3. Uterine ablation. SURGEON: Yaniv Alcala MD ANIMAL SURGEON: [facility]. ANESTHESIOLOGIST: Dr. Haynes. ANESTHESIA: General. FINDINGS: Uterus with a cavity length of 5.5 cm with 4.5 cm. Scant to moderate tissue returned at the time of curettage. At the time of hysteroscopy, no large polypoid masses or irregularities. SPECIMENS REMOVED: Endometrial curettings. SPECIMEN DISPOSITION: Pathology. ESTIMATED BLOOD LOSS: Minimal. FLUIDS: 1100 cc of Lactated Ringer's. URINE OUTPUT: Quantity sufficient void prior to this procedure. COMPLICATIONS: None. DRAINS: None. INDICATIONS: The patient is a 24-year-old female multiparous with a tubal ligation for control. The patient has had persistent heavy and irregular bleeding that is a negative impact on quality of life. The patient is consented for dilation and curettage and patient request more aggressive therapy by way of a uterine ablation. DESCRIPTION OF PROCEDURE: After informed consent was assured, the patient was taken to the operating room where anesthetic was obtained without difficulty. The patient was prepped and draped after being placed in Yellofin stirrups. A speculum was introduced in the vagina. The cervix grasped and serially dilated. The hysteroscope was advanced under direct visualization with visualization of the uterine cavity and the above findings. The hysteroscopy was discontinued. The cervix easily accept a #2 curette, which is passed to the fundus without difficulty and traction applied against the uterine wall as it is withdrawn. Good cry was obtained throughout. Samples were sent to pathology. The [employer] OPERATIVE REPORT [id number] GERARDO BECK device is now open and after measuring the uterine cavity length, the array was inserted and the width was obtained. Both numbers were programmed into the system and the test sequence is initiated. After completion of a successful test sequence therapy is conducted for 1 minute and 6 seconds. At the close of this procedure, the device was removed and the cervix inspected and found to be hemostatic. Sponge, lap, needle counts were correct times 2. The patient was awakened and went to the recovery room in stable condition. TRANSINT:[id number] Voice Confirmation ID: [id number] DOCUMENT ID: [id number] YANIV ALCALA MD at 0742 CC: [id number] DICTATION DATE: 07/01/19 1355 PEDIATRICS PHYSICIAN: 07/01/19 2217 [facility] [place] 07/01/19 [place] [id number] [place] [id number]
== END 2019-07-01 15:45 | disposition home or self-care (01) ==
LOC: D.OPS 10:00 → D.PAN 13:30 → D.OPS 13:30
PROVIDERS: ATTEND Obstetrics & Gynecology
DX: N93.8 Other specified abnormal uterine and vaginal bleeding (principal)

== ENCOUNTER 2020-06-20 12:53 | Emergency (ER) | payer MEDICAID ==
[~2020-06-20] VITALS: Ht 165.1 cm; Wt 104.5 kg
[2020-06-20 13:00] VITALS: Ht 165.1 cm; Wt 104.5 kg
[2020-06-20 13:43] LABS: BILIRUBIN NEGATIVE (NEGATIVE); KETONE NEGATIVE (NEGATIVE); NITRITE NEGATIVE (NEGATIVE); UROBILINOGEN NORMAL mg/dL (< 2)
[2020-06-20 13:44] LABS: WHITE CELLS - URINE 0-5 HPF (0-4)
[2020-06-20 13:45] LABS: BACTERIA FEW HPF (NONE SEEN); EPITHELIAL CELLS 0-5 /hpf (0-5)
[2020-06-20 13:59] LABS: BASOPHILS 0.3 % (0-2); EOSINOPHILS 2.8 % (0-7); HEMATOCRIT 42.4 % (36.0-48.0); HEMOGLOBIN 14.1 g/dL (12-16); IMMATURE GRANULOCYTES 0.4 % (0-5); LYMPHOCYTES 22.8 % (15-50); MCHC 33.3 g/dL (31.0-37.0); MCV 90.2 fL (80.0-100.0); MEAN PLATELET VOLUME 11.3 fL (7.4-10.4); MONOCYTES 5.4 % (2-11); NEUTROPHILS 68.3 % (40-80); PLATELET COUNT 196 10x3/uL (130-400); RDW 13.4 % (11.5-14.5)
[2020-06-20 14:11] LABS: CALC OSMOLALITY 271 mosm/kg (275-300); CALCIUM 8.7 mg/dL (8.5-10.1); CARBON DIOXIDE 25.7 mmol/L (21.0-32.0); CHLORIDE - SERUM 106 mmol/L (98-107); CREATININE - SERUM 0.8 mg/dL (0.6-1.3); GLUCOSE 96 mg/dL (74-106); POTASSIUM - SERUM 3.9 mmol/L (3.5-5.1); SODIUM 136 mmol/L (136-145); UREA NITROGEN 13 mg/dL (7-18); eGFR NON AFRICAN AMERICAN > 90 mL/min (90-120)
[2020-06-20 14:16] LABS: ALBUMIN 3.4 g/dL (3.4-5.0); ALKALINE PHOSPHATASE 66 U/L (30-120); ALT (SGPT) 172 U/L (10-68); BILIRUBIN - TOTAL 0.41 mg/dL (0.2-1.3); MAGNESIUM - SERUM 1.7 mg/dL (1.8-2.4); PROTEIN - SERUM 7.6 g/dL (6.4-8.2)
[2020-06-20 15:02] LABS: AMYLASE - SERUM 105 U/L (25-115); LIPASE 309 U/L (73-393)
[2020-06-20 16:27] VITALS: BP 122/78
== END 2020-06-20 16:27 | disposition home or self-care (01) ==
LOC: D.ER 12:53
PROVIDERS: Family Medicine
DX: R53.81 Other malaise (principal); J45.909 Unspecified asthma, uncomplicated

== ENCOUNTER → 2021-02-12 14:30 | Outpatient (CLI) | payer BC ==
[2020-06-20 13:00] VITALS: BMI 38.3
== END | disposition home or self-care (01) ==
LOC: D.CT 14:00
PROVIDERS: ATTEND Nurse Practitioner
DX: R31.0 Gross hematuria (principal)

== ENCOUNTER 2021-02-26 19:05 | Emergency (ER) | payer BC ==
[~2021-02-26] VITALS: Ht 165.1 cm; Wt 90.7 kg
[2021-02-26 19:17] VITALS: Ht 165.1 cm; Wt 90.7 kg
[2021-02-26 19:40] LABS: HCG URINE NEGATIVE (NEGATIVE)
[2021-02-26 19:47] LABS: BILIRUBIN NEGATIVE (NEGATIVE); KETONE NEGATIVE (NEGATIVE); NITRITE NEGATIVE (NEGATIVE); UROBILINOGEN NORMAL mg/dL (< 2)
[2021-02-26 19:48] LABS: SQUAMOUS EPITHELIAL 0-5 HPF (0-4)
[2021-02-26 19:49] LABS: BACTERIA MODERATE HPF (NONE SEEN)
[2021-02-26 19:57] LABS: BASOPHILS 0.6 % (0-2); EOSINOPHILS 2.8 % (0-7); HEMATOCRIT 41.5 % (36.0-48.0); HEMOGLOBIN 13.8 g/dL (12-16); LYMPHOCYTES 19.2 % (15-50); MCH 29.5 pg (26.0-34.0); MCHC 33.4 g/dL (31.0-37.0); MCV 88.3 fL (80.0-100.0); MONOCYTES 6.1 % (2-11); NEUTROPHILS 71.3 % (40-80); PLATELET COUNT 220 10x3/uL (130-400); RDW 13.2 % (11.5-14.5); WBC 8.3 10x3/uL (4.8-10.8)
[2021-02-26 20:29] LABS: CALCIUM 9.2 mg/dL (8.5-10.1)
[2021-02-26 20:37] LABS: ALBUMIN 3.7 g/dL (3.4-5.0); BILIRUBIN - TOTAL 0.65 mg/dL (0.2-1.3); PROTEIN - SERUM 7.9 g/dL (6.4-8.2)
[2021-02-26] MEDS ORDERED: DICLOFENAC SODI50 MG PO (21:07)
[2021-02-26] MEDS ORDERED: FLOMAX0.4 MG PO (21:07)
[2021-02-26] MEDS ORDERED: HYDROCODON-ACE1 EAC7 PO (21:07)
[2021-02-26] MEDS ORDERED: CEPHALEXIN500 M1 PO (21:11)
[2021-02-26 21:48] VITALS: BP 114/72
== END 2021-02-26 21:48 | disposition home or self-care (01) ==
LOC: D.ER 19:05
PROVIDERS: Family Medicine
DX: R10.9 Unspecified abdominal pain (principal); R31.9 Hematuria, unspecified; N39.0 Urinary tract infection, site not specified; N20.0 Calculus of kidney; J45.909 Unspecified asthma, uncomplicated